=== PATIENT | female | born 1960 | race Caucasian/White ===

== ENCOUNTER 2018-03-04 12:51 | Emergency (ER) | payer BC ==
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
[2018-03-04] MEDS ORDERED: HYDROcodone/Acetaminophen 5/325 mg Tablet ONE (14:31)
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
[2018-03-04] MEDS ORDERED: Bacitracin Zinc 1 Packet ONE (14:39)
== END 2018-03-04 15:21 | disposition home or self-care (01) ==
LOC: SCSER 12:51
DX: S51.811A Laceration without foreign body of right forearm, initial encounter (principal); S63.602A Unspecified sprain of left thumb, initial encounter; S80.811A Abrasion, right lower leg, initial encounter; S70.211A Abrasion, right hip, initial encounter; S80.211A Abrasion, right knee, initial encounter; V87.8XXA Person injured in other specified noncollision transport accidents involving motor vehicle (traffic), initial encounter
CPT/HCPCS: 12002; 29125

== ENCOUNTER 2020-11-03 07:55 | Outpatient (CLI) | payer BC | END 2020-11-03 07:56 | disposition home or self-care (01) | LOC: BICMAMMO 07:55 | PROVIDERS: ATTEND Family Medicine | DX: Z12.31 Encounter for screening mammogram for malignant neoplasm of breast (principal) | CPT/HCPCS: 77063; 77067 ==

== ENCOUNTER 2021-12-11 13:30 | Outpatient (CLI) | payer BC | END 2021-12-11 13:31 | disposition home or self-care (01) | LOC: BICMAMMO 13:30 | PROVIDERS: ATTEND Family Medicine | DX: Z12.31 Encounter for screening mammogram for malignant neoplasm of breast (principal) | CPT/HCPCS: 77063; 77067 ==

== ENCOUNTER 2023-02-24 08:01 | Outpatient (CLI) | payer BC | END 2023-02-24 08:02 | disposition home or self-care (01) | LOC: BICMAMMO 08:01 | PROVIDERS: ATTEND Student in an Organized Health Care Education/Training Program | DX: Z12.31 Encounter for screening mammogram for malignant neoplasm of breast (principal); Z80.3 Family history of malignant neoplasm of breast | CPT/HCPCS: 77063; 77067 ==

== ENCOUNTER 2025-03-18 07:37 | Outpatient (CLI) | payer MEDICARE | END 2025-03-18 07:38 | disposition home or self-care (01) | LOC: BICMAMMO 07:37 | PROVIDERS: ATTEND Student in an Organized Health Care Education/Training Program | DX: Z12.31 Encounter for screening mammogram for malignant neoplasm of breast (principal); Z80.3 Family history of malignant neoplasm of breast | CPT/HCPCS: 77063; 77067 ==

== ENCOUNTER 2025-04-10 08:05 | Outpatient (CLI) | payer MEDICARE | END 2025-04-10 08:06 | disposition home or self-care (01) | LOC: SCSBT 08:05 | PROVIDERS: ATTEND Student in an Organized Health Care Education/Training Program | DX: Z78.0 Asymptomatic menopausal state (principal); M85.851 Other specified disorders of bone density and structure, right thigh; M85.852 Other specified disorders of bone density and structure, left thigh | CPT/HCPCS: 77080 ==